=== PATIENT | male | born 1945 | race Caucasian/White ===

== ENCOUNTER 2017-09-27 09:00 | Day surgery (SDC) | payer OTHER ==
[~2017-09-27] VITALS: Ht 177.8 cm; Wt 113.6 kg
[~2017-09-27 09:00] MED LIST: ALBU1AER4 IN; ASPI81TA13 PO; CLON0.1T PO; FURO40TA4 PO; LISI-646 PO; METF-372 PO; METO25TA5 PO; MINO10TA2 PO; OME20T PO; SIMV-13 PO; TAMS0.4C36 PO
[2017-09-27] MEDS ORDERED: IOHEXOL 350 MG/ML 100ML IJ ONE (10:19)
[2017-09-27] MEDS ORDERED: LIDOCAINE HCL 2 %PF INJ 10ML AMP IJ ONE ×2 (10:19→11:00)
[2017-09-27] MEDS ORDERED: fentaNYL CITRATE 100 MCG/2 ML VL ONE (11:24)
[2017-09-27] MEDS ORDERED: MIDAZOLAM HCL 1MG/1ML-2 ML VIAL ONE (11:24)
== END 2017-09-27 14:32 | disposition home or self-care (01) ==
LOC: CATH 09:00
PROVIDERS: ATTEND Internal Medicine Cardiovascular Disease
DX: I25.10 Atherosclerotic heart disease of native coronary artery without angina pectoris (principal); E66.9 Obesity, unspecified; Z68.35 Body mass index [BMI] 35.0-35.9, adult; J44.9 Chronic obstructive pulmonary disease, unspecified; I10 Essential (primary) hypertension; E11.9 Type 2 diabetes mellitus without complications; E78.5 Hyperlipidemia, unspecified; I50.9 Heart failure, unspecified; I25.2 Old myocardial infarction; M10.9 Gout, unspecified
CPT/HCPCS: 93454; C1760; C1894; J1644; J2250; J3010; J7030; Q9967; 99152